=== PATIENT | male | born 2000 | race Caucasian/White ===

== ENCOUNTER 2023-11-10 20:13 | Emergency (ER) | payer OTHER ==
[2023-11-10 20:25] VITALS: BP 136/71; PULSE 71; RESP 20; TEMP 98.1; BMI 40.7
[2023-11-10] MEDS ORDERED: guaiFENesin/D-METHORPHAN HB 10 ML UNIT-DOSE CUPS ONE (21:43)
[2023-11-10] MEDS ORDERED: IBUPROFEN 400 MG TABLET (FP) PO ONE (21:43)
[2023-11-10] MEDS: IBUPROFEN 400 MG TABLET (FP) PO ONE (21:45)
[2023-11-10] MEDS: guaiFENesin/D-METHORPHAN HB 10 ML UNIT-DOSE CUPS PO ONE (21:45)
== END 2023-11-10 23:09 | disposition home or self-care (01) ==
LOC: JERFT 20:13
DX: R09.81 Nasal congestion (principal); R05.9 Cough, unspecified; R51.9 Headache, unspecified; R52 Pain, unspecified; R53.83 Other fatigue; U07.1 COVID-19
CPT/HCPCS: 0241U-QW; 99283-25